=== PATIENT | male | born 1990 ===

== ENCOUNTER → 2020-12-31 | Outpatient (REF) ==
--- NOTE | 2021-01-01 11:17 | REP ---
INDICATION: SOB COMPARISON: None. TECHNIQUE: PA/Lateral FINDINGS: Lungs: Clear, no infiltrate. Heart: Normal in size. Mediastinum: Mediastinal silhouette unremarkable. Pleural angles: Unremarkable.. Bones and soft tissues: Unremarkable. IMPRESSION: No acute pulmonary disease. <Electronically signed by Donta Phoenix > 01/01/21 1119
== END ==
LOC: M PLAIMG 16:10
PROVIDERS: ATTEND Internal Medicine
DX: Z00.00 Encounter for general adult medical examination without abnormal findings (principal)